=== PATIENT | female | born 1995 | race Caucasian/White ===

== ENCOUNTER 2016-04-13 12:02 | Emergency (ER) | payer BC ==
[~2016-04-13] VITALS: Ht 175.3 cm; Wt 81.4 kg
[2016-04-13 12:08] VITALS: TEMP 37; Ht 175.3 cm; Wt 81.4 kg
--- NOTE | 2016-04-13 12:22 | EMERGENCY ROOM VISIT NOTE ---
History Report prepared by Demetra: Ania Wootne Under the Supervision of: Dr. Waldo Tang M.D. First contact with patient: 12:19 Chief Complaint: RESPIRATORY PROBLEMS Stated Complaint: RESPIRATORY STRESS Nursing Triage Summary: patient was brought to the emergency department via als. patient was playing water polo when she went to the side of the pool, got out of the water and collapsed. per ems "patient was unresponsive for unknown amount of time." patient is awake alert and oriented at time of arrival to the er. patient reports "it feels like someone is sitting on my chest." History of Present Illness The patient is a 21 year old female who presents to the Emergency Room with complaints of a syncope episode occurring just prior to arrival. The patient was playing water polo when she began to feel dizzy and experienced chest heaviness. She got out of the pool when she then collapsed to the ground. The patent had a few syncopal episodes that each lasted about 15 seconds. She is currently experiencing left sided chest pain. The patient denies this happening before and does not experience pain with exertion normally. She does have a history of epilepsy, however no seizure like activity was reported. Patient arrived via EMS. She does have an IUD. Review of Systems See HPI for pertinent positives & negatives. A total of 10 systems reviewed and were otherwise negative. Past Medical & Surgical Medical Problems: (1) Epilepsy Surgical Problems: (1) History of appendectomy Social History Smoking Status: Never Smoker Smokeless Tobacco Use: No Marital Status: single Housing Status: lives with roommate Occupation Status: student Current/Historical Medications Scheduled Albuterol Hfa (Ventolin Hfa), 2-4 PUFFS INH Q6H Lisdexamfetamine Dimesylate (Vyvanse), 20 MG PO DAILY Miscellaneous Medications Fluoxetine (Prozac), 10 MG PO Lamotrigine (Lamictal), 25 MG PO Allergies Coded Allergies: Acetaminophen (Unverified Allergy, Unknown, unknown, 04/13/16) Hydrocodone (Unverified Allergy, Unknown, unknown, 04/13/16) Uncoded Allergies: CEFACLOR (Allergy, Unknown, unknown, 04/13/16) SULFA (Allergy, Unknown, unknown, 04/13/16) Physical Exam Vital Signs Date Time Temp Pulse Resp B/P Pulse Ox O2 Delivery O2 Flow Rate FiO2 04/13/16 15:26 117 20 103/61 96 Room Air 04/13/16 14:09 83 16 111/72 100 Nebulizer 04/13/16 13:49 82 20 100 Nasal Cannula 2.0 04/13/16 12:43 100 Nasal Cannula 2.0 04/13/16 12:28 84 20 122/84 100 Room Air 04/13/16 12:10 81 04/13/16 12:08 100 Room Air 04/13/16 12:08 37.0 85 20 117/72 100 Room Air 04/13/16 12:08 100 Room Air Physical Exam GENERAL: Patient is a healthy-appearing well-nourished female HEAD: Normocephalic atraumatic EYES: Ocular movements intact pupils equal and react to light OROPHARYNX mucous membranes are moist no exudates present no erythema or edema present NECK: Supple no nuchal rigidity CHEST: Good equal expansion LUNGS: Clear and equal to auscultation CARDIAC: Normal S1 and S2 ABDOMEN: Soft nontender no guarding BACK: No CVA tenderness EXTREMITIES: No pain upon palpation normal muscle strength in all groups no clubbing cyanosis or edema NEURO: Patient is following commands is answering questions appropriately. Alert and oriented x3 Cranial Nerves 2-12 grossly intact Medical Decision & Procedures Laboratory Results 04/13/16 12:50 Red Blood Count 4.48, Mean Corpuscular Volume 89.1, Mean Corpuscular Hemoglobin 31.7, Mean Corpuscular Hemoglobin Concent 35.6, Mean Platelet Volume 8.8, Neutrophils (%) (Auto) 64.9, Lymphocytes (%) (Auto) 21.6, Monocytes (%) (Auto) 10.7, Eosinophils (%) (Auto) 2.5, Basophils (%) (Auto) 0.2, Neutrophils # (Auto ) 5.20, Lymphocytes # (Auto) 1.73, Monocytes # (Auto) 0.86, Eosinophils # (Auto ) 0.20, Basophils # (Auto) 0.02 04/13/16 12:50 Test 04/13/16 12:16 04/13/16 12:30 04/13/16 12:36 04/13/16 12:50 Urine Color YELLOW Urine Appearance CLEAR (CLEAR) Urine pH 6.0 (4.5-7.5) Urine Specific [place] <= 1.005 (1.000-1.030) Urine Protein NEG (NEG) Urine Glucose (UA) NEG (NEG) Urine Ketones NEG (NEG) Urine Occult Blood NEG (NEG) Urine Nitrite NEG (NEG) Urine Bilirubin NEG (NEG) Urine Urobilinogen NEG (NEG) Urine Leukocyte Esterase NEG (NEG) Urine Test NEG (NEG) Bedside Glucose 72 mg/dl (70-90) White Blood Count 8.02 K/uL (4.8-10.8) Red Blood Count 4.48 M/uL (4.2-5.4) Hemoglobin 14.2 g/dL (12.0-16.0) Hematocrit 39.9 % (37-47) Mean Corpuscular Volume 89.1 fL (80-100) Mean Corpuscular Hemoglobin 31.7 pg (25-34) Mean Corpuscular Hemoglobin Concent 35.6 g/dl (32-36) Platelet Count 209 K/uL (130-400) Mean Platelet Volume 8.8 fL (7.4-10.4) Neutrophils (%) (Auto) 64.9 % Lymphocytes (%) (Auto) 21.6 % Monocytes (%) (Auto) 10.7 % Eosinophils (%) (Auto) 2.5 % Basophils (%) (Auto) 0.2 % Neutrophils # (Auto) 5.20 K/uL (1.4-6.5) Lymphocytes # (Auto) 1.73 K/uL (1.2-3.4) Monocytes # (Auto) 0.86 K/uL (0.11-0.59) Eosinophils # (Auto) 0.20 K/uL (0-0.5) Basophils # (Auto) 0.02 K/uL (0-0.2) RDW Standard Deviation 40.5 fL (36.4-46.3) RDW Coefficient of Variation 12.6 % (11.5-14.5) Immature Granulocyte % (Auto) 0.1 % Immature Granulocyte # (Auto) 0.01 K/uL (0.00-0.02) Anion Gap 8.0 mmol/L (3-11) Est Creatinine Clear Calc Drug Dose 146.3 ml/min Estimated GFR () 144.6 Estimated GFR (Non- 124.7 BUN/Creatinine Ratio 15.3 (10-20) Calcium Level 9.2 mg/dl (8.5-10.1) Total Bilirubin 0.5 mg/dl (0.2-1) Aspartate Amino Transf (AST/SGOT) 13 U/L (15-37) Alanine Aminotransferase (ALT/SGPT) 16 U/L (12-78) Alkaline Phosphatase 53 U/L (45-117) Total Creatine Kinase 92 U/L (26-192) Creatine Kinase MB 1.3 ng/ml (0.5-3.6) Creatine Kinase MB Ratio 1.4 (0-3.0) Troponin I < 0.015 ng/ml (0-0.045) Total Protein 6.6 gm/dl (6.4-8.2) Albumin 4.0 gm/dl (3.4-5.0) Globulin 2.6 gm/dl (2.5-4.0) Albumin/Globulin Ratio 1.5 (0.9-2) Lipase 102 U/L (73-393) Test 04/13/16 12:55 Bedside D-Dimer 48 ng/mlFEU (0-450) Bedside Troponin I 0.000 ng/ml (0-0.045) Medications Administered Medications (Trade) Dose Ordered Sig/Camila Route Start Time Stop Time Status Last Admin Dose Admin Ondansetron HCl (Zofran Inj) 4 mg NOW STAT IV 04/13/16 12:26 04/13/16 12:28 DC 04/13/16 12:51 4 MG Nitroglycerin (Nitroglycerin 2% Oint) 1 inch STK-MED ONCE .ROUTE 04/13/16 12:48 04/13/16 13:14 DC 04/13/16 12:52 0.5 INCH Albuterol/ Ipratropium (Duoneb) 12 ml ONE STAT INH 04/13/16 13:36 04/13/16 13:47 DC 04/13/16 13:49 12 ML Medical Decision Resident Physician Supervision Note: I interviewed and examined the patient. Discussed with Dr. Carty and agree with findings and plan as documented in the note. Documented By: Waldo Tang Impression Primary Impression: Syncope Departure Information Dispostion Home / Self-Care Prescriptions Albuterol Hfa (VENTOLIN HFA) 200 Puffs/04104 Mcg Aers 2-4 PUFFS INH Q6H, #1 INHALER Prov: Khloe Carty MD 04/13/16 Referrals No Doctor, Assigned (PCP) Patient Instructions My [facility] Problem Qualifiers Primary Impression: Syncope Syncope type: unspecified Qualified Codes: R55 - Syncope and collapse
[2016-04-13] MEDS ORDERED: ONDANSETRON INJ 2 MG/ML 2 ML VIAL IV STA (12:26)
[2016-04-13] MEDS ORDERED: NITROGLYCERIN OINT 2% 1GM PACKET EXT PRN (12:30)
[2016-04-13 12:34] LABS: MANUAL MICROSCOPIC REQUIRED? NO; URINE APPEARANCE CLEAR (CLEAR); URINE BILIRUBIN NEG (NEG); URINE COLOR YELLOW; URINE NITRITE NEG (NEG); URINE SPECIFIC GRAVITY <= 1.005 (1.000-1.030); UROBILINOGEN NEG (NEG)
[2016-04-13 12:38] LABS: REVIEW REQ? NO
--- NOTE | 2016-04-13 12:38 | EMERGENCY ROOM VISIT NOTE ---
History First contact with patient: 12:34 Chief Complaint: RESPIRATORY PROBLEMS Stated Complaint: RESPIRATORY STRESS Nursing Triage Summary: patient was brought to the emergency department via als. patient was playing water polo when she went to the side of the pool, got out of the water and collapsed. per ems "patient was unresponsive for unknown amount of time." patient is awake alert and oriented at time of arrival to the er. patient reports "it feels like someone is sitting on my chest." History of Present Illness The patient is a 21 year old female with history of epilepsy and depression who presents to the Emergency Room with complaints of syncopal event. The patient was playing water polo earlier today, and had played about 15 minutes total ( though in intermittent spurts). She reports she noticed she had some vague central chest pain which concerned so she swam towards the pool exit, got out of bed, then collapsed onto the cement (not into the water). She then had 5 further brief syncopal episodes, each lasting 15-30 seconds each, and each time she came around on her own. She reports her epilepsy is controlled with Lamictal 300mg daily and she has not had a seizure for 2 years. She denies a family history of early cardiac disease. She reports her breathing feels ok at this moment. She reports she still has chest pain at this time. It is still in the left side of the chest, does not radiate, moderate severity, and described as a "rock on her chest". She denies associated shortness of breath. Review of Systems See HPI for pertinent positives & negatives. A total of 10 systems reviewed and were otherwise negative. Past Medical/Surgical History Medical Problems: (1) Epilepsy Surgical Problems: (1) History of appendectomy Epilepsy Depression IUD Social History Smoking Status: Never Smoker Housing Status: lives with roommate Occupation Status: student Current/Historical Medications Scheduled Albuterol Hfa (Ventolin Hfa), 2-4 PUFFS INH Q6H Lisdexamfetamine Dimesylate (Vyvanse), 20 MG PO DAILY Miscellaneous Medications Fluoxetine (Prozac), 10 MG PO Lamotrigine (Lamictal), 25 MG PO Allergies Coded Allergies: Acetaminophen (Unverified Allergy, Unknown, unknown, 04/13/16) Hydrocodone (Unverified Allergy, Unknown, unknown, 04/13/16) Uncoded Allergies: CEFACLOR (Allergy, Unknown, unknown, 04/13/16) SULFA (Allergy, Unknown, unknown, 04/13/16) Physical Exam Vital Signs Date Time Temp Pulse Resp B/P Pulse Ox O2 Delivery O2 Flow Rate FiO2 04/13/16 15:26 117 20 103/61 96 Room Air 04/13/16 14:09 83 16 111/72 100 Nebulizer 04/13/16 13:49 82 20 100 Nasal Cannula 2.0 04/13/16 12:43 100 Nasal Cannula 2.0 04/13/16 12:28 84 20 122/84 100 Room Air 04/13/16 12:10 81 04/13/16 12:08 100 Room Air 04/13/16 12:08 37.0 85 20 117/72 100 Room Air 04/13/16 12:08 100 Room Air Physical Exam GENERAL: Awake, alert, well-appearing, in no acute distress HENT: Normocephalic, atraumatic. Oropharynx unremarkable. EYES: Normal conjunctiva. Sclera non-icteric. NECK: Supple. No nuchal rigidity. FROM. No JVD. RESPIRATORY: Diffuse wheezes to auscultation. CARDIAC: Regular rate, normal rhythm. Extremities warm and well perfused. Pulses equal. ABDOMEN: Soft, non-distended. No tenderness to palpation. No rebound or guarding. No masses. RECTAL: Deferred. MUSCULOSKELETAL: Chest examination reveals no tenderness. The back is symmetrical on inspection without obvious abnormality. There is no CVA tenderness to palpation. No joint edema. LOWER EXTREMITIES: Calves are equal size bilaterally and non-tender. No edema. No discoloration. NEURO: Normal sensorium. No sensory or motor deficits noted. SKIN: No rash or jaundice noted. Medical Decision & Procedures Laboratory Results 04/13/16 12:50 Red Blood Count 4.48, Mean Corpuscular Volume 89.1, Mean Corpuscular Hemoglobin 31.7, Mean Corpuscular Hemoglobin Concent 35.6, Mean Platelet Volume 8.8, Neutrophils (%) (Auto) 64.9, Lymphocytes (%) (Auto) 21.6, Monocytes (%) (Auto) 10.7, Eosinophils (%) (Auto) 2.5, Basophils (%) (Auto) 0.2, Neutrophils # (Auto ) 5.20, Lymphocytes # (Auto) 1.73, Monocytes # (Auto) 0.86, Eosinophils # (Auto ) 0.20, Basophils # (Auto) 0.02 04/13/16 12:50 Test 04/13/16 12:16 04/13/16 12:30 04/13/16 12:36 04/13/16 12:50 Urine Color YELLOW Urine Appearance CLEAR (CLEAR) Urine pH 6.0 (4.5-7.5) Urine Specific [place] <= 1.005 (1.000-1.030) Urine Protein NEG (NEG) Urine Glucose (UA) NEG (NEG) Urine Ketones NEG (NEG) Urine Occult Blood NEG (NEG) Urine Nitrite NEG (NEG) Urine Bilirubin NEG (NEG) Urine Urobilinogen NEG (NEG) Urine Leukocyte Esterase NEG (NEG) Urine Test NEG (NEG) Bedside Glucose 72 mg/dl (70-90) White Blood Count 8.02 K/uL (4.8-10.8) Red Blood Count 4.48 M/uL (4.2-5.4) Hemoglobin 14.2 g/dL (12.0-16.0) Hematocrit 39.9 % (37-47) Mean Corpuscular Volume 89.1 fL (80-100) Mean Corpuscular Hemoglobin 31.7 pg (25-34) Mean Corpuscular Hemoglobin Concent 35.6 g/dl (32-36) Platelet Count 209 K/uL (130-400) Mean Platelet Volume 8.8 fL (7.4-10.4) Neutrophils (%) (Auto) 64.9 % Lymphocytes (%) (Auto) 21.6 % Monocytes (%) (Auto) 10.7 % Eosinophils (%) (Auto) 2.5 % Basophils (%) (Auto) 0.2 % Neutrophils # (Auto) 5.20 K/uL (1.4-6.5) Lymphocytes # (Auto) 1.73 K/uL (1.2-3.4) Monocytes # (Auto) 0.86 K/uL (0.11-0.59) Eosinophils # (Auto) 0.20 K/uL (0-0.5) Basophils # (Auto) 0.02 K/uL (0-0.2) RDW Standard Deviation 40.5 fL (36.4-46.3) RDW Coefficient of Variation 12.6 % (11.5-14.5) Immature Granulocyte % (Auto) 0.1 % Immature Granulocyte # (Auto) 0.01 K/uL (0.00-0.02) Anion Gap 8.0 mmol/L (3-11) Est Creatinine Clear Calc Drug Dose 146.3 ml/min Estimated GFR () 144.6 Estimated GFR (Non- 124.7 BUN/Creatinine Ratio 15.3 (10-20) Calcium Level 9.2 mg/dl (8.5-10.1) Total Bilirubin 0.5 mg/dl (0.2-1) Aspartate Amino Transf (AST/SGOT) 13 U/L (15-37) Alanine Aminotransferase (ALT/SGPT) 16 U/L (12-78) Alkaline Phosphatase 53 U/L (45-117) Total Creatine Kinase 92 U/L (26-192) Creatine Kinase MB 1.3 ng/ml (0.5-3.6) Creatine Kinase MB Ratio 1.4 (0-3.0) Troponin I < 0.015 ng/ml (0-0.045) Total Protein 6.6 gm/dl (6.4-8.2) Albumin 4.0 gm/dl (3.4-5.0) Globulin 2.6 gm/dl (2.5-4.0) Albumin/Globulin Ratio 1.5 (0.9-2) Lipase 102 U/L (73-393) Test 04/13/16 12:55 Bedside D-Dimer 48 ng/mlFEU (0-450) Bedside Troponin I 0.000 ng/ml (0-0.045) Medications Administered Medications (Trade) Dose Ordered Sig/Camila Route Start Time Stop Time Status Last Admin Dose Admin Ondansetron HCl (Zofran Inj) 4 mg NOW STAT IV 04/13/16 12:26 04/13/16 12:28 DC 04/13/16 12:51 4 MG Nitroglycerin (Nitroglycerin 2% Oint) 1 inch STK-MED ONCE .ROUTE 04/13/16 12:48 04/13/16 13:14 DC 04/13/16 12:52 0.5 INCH Albuterol/ Ipratropium (Duoneb) 12 ml ONE STAT INH 04/13/16 13:36 04/13/16 13:47 DC 04/13/16 13:49 12 ML ECG Indication: syncope Rhythm: normal sinus ED Course 12:20 PM: I evaluated the patient in room B9. 12:26: I ordered a CBC, CMP, POC Troponin and D-Dimer, Trop, CKMB, CPK, Lamictal level, urinary test and CXR 12:42: I followed up with the patient. Her O2 saturations were 100% but she requested having the nasal cannulae on. 12:44: I called the patient's mother as requested, the call went directly to [employer] and so I left instructions for her to call me back 1:30: The patients mother called me back. She reported Fatimah had been sick over the last week, and was meant to be taking Levaquin, and probably pushed herself too hard. She reported the patient has never had a tracheostomy and was intubated when she was a child. She does have a history of asthma and is not completely compliant with her inhaler. 2:30: On further review, the patient received a Duoneb nebulizer for an hour. Afterwards, she felt much better. She was sitting happily eating pizza. We discussed precautions with going home and she reported she had a Ventolin inhaler. When I inspected the inhaler I found it was in 11/2015. I prescribed her another inhaler to [facility] locally, so it could be picked up on her way home. She was discharged home in good condition. Medical Decision 21 yo F with epilepsy who presents with multiple syncopal events during water polo - differential includes partial seizure, aspiration, dehydration, ACS, or other electrolyte disturbance. Her cardiac enzymes were negative, as was her D-Dimer. It was likely that she was fatigued from her [employer] game and also with a recent sinus infection, she found herself light headed and so collapsed. Impression Primary Impression: Syncope Departure Information Prescriptions Albuterol Hfa (VENTOLIN HFA) 200 Puffs/01337 Mcg Aers 2-4 PUFFS INH Q6H, #1 INHALER Prov: Khloe Carty MD 04/13/16 Referrals No Doctor, Assigned (PCP) Patient Instructions My [facility] Resident Tracking Resident Involvement: Resident Care Provided Care Provided: Pediatric Care ED
[2016-04-13 12:43] VITALS: O2SAT 100
[2016-04-13] MEDS ORDERED: LISD20CA PO (12:48)
[2016-04-13] MEDS ORDERED: NITROGLYCERIN OINT 2% 1GM PACKET ONE (12:48)
[2016-04-13] MEDS ORDERED: LAMO25TA PO (12:48)
[2016-04-13] MEDS ORDERED: FLUO10CA48 PO (12:48)
[2016-04-13 12:56] LABS: ZZUR CULT IF INDIC CLEAN CATCH NO
--- NOTE | 2016-04-13 12:59 | DIAGNOSTIC IMAGING REPORT ---
CHEST ONE VIEW PORTABLE CLINICAL HISTORY: Chest pain. COMPARISON STUDY: No previous studies for comparison. FINDINGS: Lung volumes are normal. The patient is mildly rotated. Lungs are clear. There is no pneumothorax or pleural effusion. Cardiac size is normal. Mediastinal contours are normal. Pulmonary vascularity is normal. IMPRESSION: No acute cardiopulmonary findings. Electronically signed by: Jose Juan Thomas M.D. 04/13/2016 12:57 PM Dictated Date/Time: 04/13/2016 12:57 PM
[2016-04-13 13:00] LABS: BASO % 0.2 %; BASO ABS # 0.02 K/uL (0-0.2); COMPLETE YES; EOS % 2.5 %; HEMATOCRIT 39.9 % (37-47); IG% 0.1 %; LYMPH % 21.6 %; LYMPH ABS # 1.73 K/uL (1.2-3.4); MEAN CELL VOLUME 89.1 fL (80-100); MEAN CORPUSCULAR HEMOGLOBIN 31.7 pg (25-34); MEAN CORPUSCULAR HGB CONC 35.6 g/dl (32-36); MEAN PLATELET VOLUME 8.8 fL (7.4-10.4); MONO % 10.7 %; NEUT % 64.9 %; PLATELET COUNT 209 K/uL (130-400); RED BLOOD COUNT 4.48 M/uL (4.2-5.4); WHITE BLOOD COUNT 8.02 K/uL (4.8-10.8)
[2016-04-13] MEDS ORDERED: ALBUT/IPRATROP 3MG/0.5MG NEB 3 ML VIAL INH STA ×2 (13:12→13:36)
[2016-04-13 13:15] LABS: ALT/SGPT 16 U/L (12-78); AST/SGOT 13 U/L (15-37); BLOOD UREA NITROGEN 11 mg/dl (7-18); BUN/CREATININE RATIO 15.3 (10-20); CALCIUM 9.2 mg/dl (8.5-10.1); CARBON DIOXIDE 29 mmol/L (21-32); CHLORIDE 108 mmol/L (98-107); GLUCOSE 79 mg/dl (70-99); POTASSIUM 4.2 mmol/L (3.5-5.1); SODIUM 145 mmol/L (136-145)
[2016-04-13 13:20] LABS: ALB/GLOB RATIO 1.5 (0.9-2); ALKALINE PHOSPHATASE 53 U/L (45-117); CKMB/CK RATIO 1.4 (0-3.0)
[2016-04-13 13:49] VITALS: PULSE 82; O2SAT 100
[2016-04-13] MEDS ORDERED: VNTHFA/IN INH (15:11)
[2016-04-13 15:26] VITALS: BP 103/61; PULSE 117; O2SAT 96
== END 2016-04-13 15:26 | disposition home or self-care (01) ==
LOC: C.EDB 12:06
DX: R55 Syncope and collapse (principal); G40.909 Epilepsy, unspecified, not intractable, without status epilepticus; Z79.899 Other long term (current) drug therapy